=== PATIENT | female | born 1960 | race Caucasian/White ===

== ENCOUNTER 2019-04-23 12:08 | Emergency (ER) | payer OTHER ==
[~2019-04-23] VITALS: Ht 157.5 cm; Wt 88.5 kg
[2019-04-23 12:15] VITALS: BP 113/50
[2019-04-23] MEDS ORDERED: ABILIFY 5 MG TAB5 M1 PO (12:24)
[2019-04-23] MEDS ORDERED: DESVENLAFAXINE100 MG PO (12:24)
[2019-04-23] MEDS ORDERED: LISINOPRIL-HCT1 EAC1 PO (12:24)
[2019-04-23] MEDS ORDERED: ADDERALL 30 MG30 MG PO (12:24)
[2019-04-23] MEDS ORDERED: SIMVASTATIN40 MG PO (12:24)
[2019-04-23] MEDS ORDERED: TOPROL XL50 MG PO (12:25)
[2019-04-23] MEDS ORDERED: CALCIUM 600 +1 EA11 PO (12:25)
[2019-04-23] MEDS ORDERED: LEVO-T50 MCG PO (12:25)
[2019-04-23] MEDS ORDERED: KLONOPIN0.5 MG PO (12:25)
[2019-04-23] MEDS ORDERED: CENTANY30 GM TOP (12:55)
[2019-04-23] MEDS ORDERED: KEFLEX500 M1 PO (12:57)
== END 2019-04-23 13:38 | disposition home or self-care (01) ==
LOC: M.ERS 12:08
DX: S01.312A Laceration without foreign body of left ear, initial encounter (principal); F41.9 Anxiety disorder, unspecified; F32.9 Major depressive disorder, single episode, unspecified; Z88.0 Allergy status to penicillin; Z90.49 Acquired absence of other specified parts of digestive tract; Z90.710 Acquired absence of both cervix and uterus; Z98.890 Other specified postprocedural states; X58.XXXA Exposure to other specified factors, initial encounter; Y93.89 Activity, other specified; Y92.89 Other specified places as the place of occurrence of the external cause; Y99.8 Other external cause status